=== PATIENT | female | born 1995 | race Caucasian/White ===

== ENCOUNTER → 2017-02-10 | Outpatient (CLI) | payer BC ==
--- NOTE | 2017-02-10 14:45 | DIAGNOSTIC IMAGING REPORT ---
RIGHT FOOT MIN 3 VIEWS CLINICAL HISTORY: 21 years-old Female presenting with RIGHT FOOT PAIN Right. TECHNIQUE: Frontal, oblique, and lateral views of the right foot were obtained. COMPARISON: None. FINDINGS: No acute fracture or malalignment. No radiopaque foreign body. Type III accessory navicular. Minimal soft tissue swelling over the medial aspect of the navicular. Additionally, os peroneum noted. No abnormal fusion of the tarsal bones. IMPRESSION: 1. No acute osseous injury of the right foot. 2. Type III accessory navicular bone with minimal overlying apparent soft tissue swelling. Correlate for point tenderness. Electronically signed by: Benito Weaver M.D. 02/10/2017 2:43 PM Dictated Date/Time: 02/10/2017 2:40 PM
== END | disposition home or self-care (01) ==
LOC: C.RDSM 11:41
PROVIDERS: ATTEND Family Medicine
DX: M79.671 Pain in right foot (principal); Q66.81 Congenital vertical talus deformity, right foot